=== PATIENT | female | born 1960 ===

== ENCOUNTER 2025-04-20 06:15 | Day surgery (SDC) | payer OTHER, SELFPAY ==
[2025-04-20] VITALS (7 sets, daily range): BP systolic 156–181; BP diastolic 82–93; BMI 34.2
[2025-04-20] MEDS: NORMOSOL-R/PLASMALYTE-A 1000 IV (11:51)
== END 2025-04-20 15:50 | disposition home or self-care (01) ==
LOC: SDS 06:15
PROVIDERS: ATTENDING PHYSICIAN Otolaryngology
DX: J33.9 Nasal polyp, unspecified (principal)
CPT/HCPCS: 31254; 88304; 88311